=== PATIENT | female | born 1980 | race Two or more races ===

== ENCOUNTER 2022-03-12 23:35 | Emergency (ER) | payer OTHER ==
[~2022-03-12] VITALS: Ht 170.2 cm; Wt 72.6 kg
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
[2022-03-12] MEDS ORDERED: LORAZEPAM INJ 2 MG/ML VIAL ONE (23:57)
[2022-03-12] MEDS ORDERED: diphenhydrAMINE HCL 50 MG/ML VIAL ONE (23:57)
[2022-03-12] MEDS ORDERED: HALOPERIDOL LACTATE INJ 5 MG/ML VIAL ONE (23:57)
[2022-03-13] MEDS ORDERED: LORAZEPAM INJ 2 MG/ML VIAL IM ONE
[2022-03-13] MEDS ORDERED: HALOPERIDOL LACTATE INJ 5 MG/ML VIAL IM ONE
[2022-03-13] MEDS ORDERED: diphenhydrAMINE HCL 50 MG/ML VIAL IM ONE
--- NOTE | 2022-03-13 00:05 | NUR ---
COVID ANTIGEN SWAB COLLECTED AND SENT TO LAB
--- NOTE | 2022-03-13 00:48 | NUR ---
URINE COLLECTED AND SENT TO LAB
--- NOTE | 2022-03-13 00:48 | NUR ---
20G IV LINE ESTABLISHED AT R HAND. BLOOD DRAWN AND SENT TO LAB.
[2022-03-13 01:11] LABS: BASOPHILS # (AUTO) 0.1 K/uL (0.0-0.2); BASOPHILS % (AUTO) 0.5 % (0.0-2.0); EOSINOPHILS % (AUTO) 1.8 % (0.0-6.0); HEMATOCRIT 32 % (33-45); HEMOGLOBIN 10.8 g/dL (11.5-14.8); LYMPHOCYTES # (AUTO) 1.7 K/uL (0.8-4.8); LYMPHOCYTES % (AUTO) 14.5 % (20.0-44.0); MEAN CORPUSCULAR HGB CONC 34 g/dl (31.0-36.0); MEAN CORPUSCULAR VOLUME 92 fL (82-100); MONOCYTES # (AUTO) 0.9 K/uL (0.1-1.30); MONOCYTES % (AUTO) 7.6 % (2.0-12.0); NEUTROPHILS % (AUTO) 75.6 % (43.0-81.0); PLATELET COUNT (AUTO) 380 K/uL (150-450); RED BLOOD CELL COUNT(AUTO) 3.49 MIL/uL (4.0-5.2)
[2022-03-13 01:22] LABS: BILIRUBIN,URINE NEGATIVE (NEGATIVE); COLOR,URINE YELLOW (YELLOW); LEUKOCYTE ESTERASE ,URINE NEGATIVE (NEGATIVE); NITRITE, URINE NEGATIVE (NEGATIVE); PROTEIN,URINE 100 mg/dl (NEGATIVE); UGLUCOSE >=1000 mg/dL (NEGATIVE); UROBILINOGEN,URINE 0.2 EU/dL (0.2)
[2022-03-13 01:38] LABS: CALCIUM, SERUM 9.2 mg/dL (8.5-10.1); CARBON DIOXIDE 24 mmol/L (21-32); CHLORIDE 91 mmol/L (98-107); CREATININE 1.2 mg/dL (0.6-1.3); SODIUM SERUM 127 mmol/L (136-145); UREA NITROGEN, BLOOD 16 mg/dL (7-18)
[2022-03-13 01:49] LABS: ACETAMINOPHEN 1 ug/ml (10-30); ALANINE AMINOTRANSFERASE 19 U/L (12-78); ALBUMIN 3.5 g/dL (3.4-5.0); ALKALINE PHOSPHATASE 68 U/L (46-116); ASPARTATE AMINOTRANSFERASE 23 U/L (15-37); BILIRUBIN,DIRECT 0.1 mg/dL (0.0-0.2); BILIRUBIN,TOTAL 0.4 mg/dL (0.2-1.0); TOTAL PROTEIN, SERUM 7.5 g/dL (6.4-8.2)
[2022-03-13 01:52] LABS: GLUCOSE 372 mg/dL (74-106)
--- NOTE | 2022-03-13 01:55 | NUR ---
SODIUM 127
[2022-03-13 02:22] LABS: ALCOHOL, BLOOD < 3 mg/dL (0-0)
[2022-03-13] MEDS ORDERED: METF-442 PO (09:26)
[2022-03-13] MEDS ORDERED: GLIP5TAB13 PO (09:26)
[2022-03-13] MEDS ORDERED: LEVO175T7 PO (09:26)
[2022-03-13] MEDS ORDERED: IV NS 0.9% 1,000 ML BAG IV ONE (09:30)
--- NOTE | 2022-03-13 09:35 | NUR ---
Dr. Siddiqui made aware re: blood gluccose level of 323 mg/dl, with new order to give 8 units sq one time. Primary RN aware.
--- NOTE | 2022-03-13 09:55 | NUR ---
Attempted to interview pt. but she is still drowsy. Will follow-up later.
[2022-03-13] MEDS ORDERED: INSULIN REGULAR, HUMAN 100 UNIT/ML 10 ML VIAL SQ ONE (10:00)
--- NOTE | 2022-03-13 12:17 | NUR ---
SS Note: Pt. Is a 41-year-old female who demonstrates adequate insight to the reason for hospitalization. Per pt., she does not remember how she got to the hospital. Per EMR, pt. was brought in for agitation and bizarre behavior. Pt. was oriented x3, alert, and cooperative. During interview, pt. was capable of following directions and appeared unkempt. Pt.'s speech was at a normal rate and pt.'s mood was elevated. Pt. reported no hx of mental health, substance abuse, suicidal ideation, or homicidal ideation. Pt. denies auditory hallucinations, visual hallucinations, paranoia, or delusions. Pt. denies substance abuse, but pt. is positive for Cocaine and Benzo. SW explored pt.'s living situation. Per pt., she lives alone [[id number] [place] [address]]. Pt. stated that she is ambulatory and is independent with her ADL's. Pt. is safe to go home. Plan: SW provided available resources and pt. accepted. Upon discharge, per pt., she will return home [[id number] [place] [address]]. NAVARRO notified . Resources Provided: Counseling--Outpatient [facility] [address] [place] [address] (Specializes in in-depth psychotherapy for emotional distress: anxiety, depression, interpersonal conflicts, life transitions, childhood abuse) [facility] [address] [place] [address] (Assist with solving problem marital difficulties, separation & divorce, aging parents, & grief, chronic & terminal illness) [facility] [address] [place] [address] (Deal with loss & grief, anxiety, marital difficulties) [facility] [address] [place] [address] (Provide in-home mental services to people who are incapable of leaving their homes) [facility] [address] [place] [address] [facility] [address] [place] [address] PSYCHIATRIC OUTPATIENT SERVICES [facility] Partial Hospitalization and Intensive Outpatient Program (Managed Care and [place] Only)[address] [facility] [phone] [facility] Partial Hospitalization and Outpatient [address] [place], [place] [phone] [facility] [place] [address] [place], [place] [phone] [facility] Partial Hospitalization and Outpatient Vclehop[address] [facility] [phone] Substance Abuse resources provided included: [facility] Substance Abuse Self-Helpline ([facility]) ; CRI -HELP [address] Replaced By [facility]. [place] [id number] ; [facility] [address] [facility] [address] ; [facility] [address] [facility] [address] ; [facility] [address] [facility] [id number] ; [facility] [address] [facility] [address] ; [facility] [address] [facility] [address] ; [facility] Substance Abuse Helpline(SAS)-[facility] ; [facility] ; [facility] [place]; [facility] [place]; [facility] [place]; [facility]; [facility] [place]; [facility] [place]; [facility]. [facility]; Alcoholics Anonymous -[facility]; Cyril ; Marijuana Anonymous -[facility]; Narcotics Anonymous www.na.org;
[2022-03-13] MEDS ORDERED: METFORMIN 500 MG TABLET PO ONE (13:00)
[2022-03-13] MEDS ORDERED: METFORMIN 500 MG TABLET ONE (13:02)
--- NOTE | 2022-03-13 13:06 | NUR ---
PT FRIEND GIORGIO [phone] FOR MEDICAL INFORMATION, PT STATED THAT SHE DOES NOT WANT THIS SHARED WIT HIM.
[2022-03-13] MEDS ORDERED: METF-440 PO (13:40)
--- NOTE | 2022-03-13 13:45 | NUR ---
IV removed. Catheter intact and site benign. Pressure and 4x4 applied to site. No bleeding noted.Patient discharged to home in stable condition. Written and verbal after care instructions given. Patient verbalizes understanding of instruction.
[2022-03-13 13:50] VITALS: BP 132/76
== END 2022-03-13 13:50 | disposition home or self-care (01) ==
LOC: ER 23:37
DX: R46.2 Strange and inexplicable behavior (principal); R45.1 Restlessness and agitation; E11.65 Type 2 diabetes mellitus with hyperglycemia; Z91.14 Patient's other noncompliance with medication regimen; Z20.822 Contact with and (suspected) exposure to COVID-19
CPT/HCPCS: 99284; 85025; 80048; 80076; 81003; 36415; 87426; 80143; 80320; 80307; 96372 ×2; 96360; 82962 ×2; J2060; J1200; J1630; C9803; J7030 ×2; G0480